=== PATIENT | male | born 1980 | race Two or more races ===

== ENCOUNTER 2021-05-30 09:24 | Emergency (ER) | payer OTHER, SELFPAY ==
--- NOTE | ~2021-05-30 | XR_ITS ---
EXAMINATION: XR LUMBOSACRAL SPINE CLINICAL INFORMATION: Back pain COMPARISON: None TECHNIQUE: Three views of the lumbosacral spine. FINDINGS: The vertebral bodies have normal height and alignment. The curvature of the lumbar spine is normal. The disc spaces are maintained. No pars interarticularis defect or vertebral compression fracture. The anterior and posterior elements are intact. No lytic or osteoblastic lesion. Sacrum and sacroiliac joints are normal. XR/XR lumbar spine 2-3V IMPRESSION: Normal lumbar spine. No fracture or malalignment.
[2021-05-30 09:44] VITALS: BP 145/96; PULSE 75; RESP 16; TEMP 36.6; O2SAT 97; BMI 26.6
--- NOTE | 2021-05-30 10:38 | ED.BACK ---
HPI - Back Pain/Injury General Chief Complaint: Back Pain/Injury Stated Complaint: back & leg pain Time Seen by Provider: 05/30/21 10:37 Source: patient Mode of arrival: ambulatory Limitations: no limitations History of Present Illness HPI Narrative: 41 years old male came in for evaluation of back pain. 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 No urinary or stool incontinence, no fever, no chills. Related Data Previous Rx's Medication Instructions Recorded miconazole nitrate 2 % topical 1 appl TOPICAL BID 10 Days #85 g 08/30/20 powder baclofen 10 mg tablet 10 mg PO BEDTIME PRN #5 tab 05/29/21 ibuprofen 600 mg tablet 600 mg PO Q8H PRN #15 tab 05/29/21 Allergies Allergy/AdvReac Type Severity Reaction Status Date / Time No Known Allergies Allergy Verified 05/29/21 08:56 Review of Systems Review of Systems: All other systems are reviewed and are negative Constitutional: Reports as per HPI and Reports no additional constitutional complaints Eyes: Reports as per HPI and Reports no additional eye complaints Reports system reviewed and no additional complaints, except as documented Cardiovascular: Reports as per HPI and Reports no additional cardiovascular complaints Respiratory: Reports as per HPI and Reports no additional respiratory complaints Gastrointestinal: Reports as per HPI and Reports no additional gastrointestinal complaints Genitourinary: Reports no additional female genitourinary complaints Musculoskeletal: Reports no additional musculoskeletal complaints Skin/Breast: Reports system reviewed and no additional complaints, except as docu Psychiatric: Reports no additional psychiatric complaints Endocrine: Reports no additional endocrine complaints Hematologic/Lymphatic: Reports no additional hematologic/lymphatic complaints Allergic/Immunologic: Reports no additional allergic/immunologic complaints Reports system reviewed and no additional complaints, except as documented and Reports Abnormal speech present [facility] Past Medical History Medical History Overweight (BMI 25.0-29.9) Tinea pedis Vitamin D deficiency Surgical History Myringotomy tube(s) status Family History Family History Father No problems noted. 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 Blood pressure normal. Heart rate normal. Respiration rate normal. Temperature normal. Oxygen saturation normal. Appearance: Alert. Oriented X3. No acute distress. Head: Normal external exam. Normocephalic. Atraumatic. No Davis signs noted. No raccoon eyes noted Eyes: PERRLA. EOMI. Conjunctiva and sclera normal. Eyelids normal. ENT: TM's Normal. Pharynx normal. Uvula midline. Moist mucous membranes. No trismus noted. No drooling noted. No muffled voice noted. Neck: Normal inspection. Neck supple. FROM. No adenopathy. Thyroid Normal. No meningeal signs. No neck mass noted. CVS: Normal heart rate and rhythm. Heart sound normal. No murmurs noted. Pulses normal throughout. Respiratory: No respiratory distress. Painless inspiration. Breath sounds normal. No wheezes/rales/rhonchi noted. Chest nontender. No accessory muscle usage noted or decreased air movement noted. Abdomen: Soft and nontender. Bowel sounds normal in all 4 quadrants. No distention noted. No organomegaly noted. No visible injury noted. Back: No CVA tenderness. Full range of motion noted. Mild no lumbar spine tenderness, no step-off, no deformity. Skin: Skin warm and dry. Normal skin color. Normal skin turgor. No rashes/lesions/lacerations noted. Extremities: No lower extremity edema. Extremities exhibit normal range of motion. Extremities nontender. Neuro: Oriented X 3. Cranial nerve exam: II-XII are grossly intact No motor deficit. No sensory deficit. Reflexes normal. Perianal sensation is intact, able to ambulate on both heels and toes. Course Course Course Narrative: Assessment and plan. 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 Patient already seen by his PCP to arrange for physical therapy that will start next week, patient was instructed to rest for the next 3 days, with no strenuous activity or heavy lifting. Using NSAIDs as an anti-inflammatory. MDM - Back Pain/Injury Imaging Data Lumbar spine: Attestation: I personally reviewed and interpreted this imaging study as follows: Radiologist's impression: No acute pathology Discharge Plan Discharge Clinical Impression: Sciatica Patient Disposition: Home, Self-Care Instructions: Sciatica (ED) Prescriptions: No Action miconazole nitrate 2 % powder 1 appl topical BID 10 Days Qty: 85 RF: 0 ibuprofen 600 mg tablet 600 mg PO Q8H PRN (Reason: pain) Qty: 15 RF: 0 baclofen 10 mg tablet 10 mg PO BEDTIME PRN (Reason: muscle spasm) Qty: 5 RF: 0 Referrals: Estevan Padilla MD [Primary Care Provider] - 2 days Stand Alone Forms: Work/School Release
== END 2021-05-30 11:24 | disposition home or self-care (01) ==
PROVIDERS: Emergency Provider Emergency Medicine; PCP Internal Medicine
DX: M54.40 Lumbago with sciatica, unspecified side (principal)
CPT/HCPCS: 72100; 99283; 99284

== ENCOUNTER 2021-06-06 09:00 | Outpatient (RCR) | payer OTHER, SELFPAY ==
--- NOTE | 2021-05-31 16:05 | MHC.PT.EP ---
[facility] [place] [facility] [place] [facility] [place] Office [address] Carloz Melendez [address] [phone] F: [phone] F: [phone] F: [phone] F: [phone] Physical Therapy Plan of Care Date of Evaluation: Date of Surgery: Diagnosis: dorsalgia Assessment: 41 y/o M referred to PT with dorsalgia. 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 He then injured his back while at work on 05/28/21when he was moving a pallet side to side to get it to fit on a [employer]. CUrrently he is having pain and difficulty with bending, don/doffing shoes, rolling over in bed, R sidelying, prolonged sitting, walking, prolonged standing, and lifting. Examination shows decreased lumbar AROM, decreased R LE strength, (+) R SLR and prone knee bend, slight SI asymmetry, muscle spasm, and impaired gait pattern. He centralized with REIL. S/s consistent with lumbar derangement. Recommend PT 2x/week for 4 weeks to address impairments, implement HEP, and optimize functional mobility. Frequency and Duration: The patient will be seen 2x/week for 4 weeks Short Term Goals: 2 weeks 1. I with hEP 2. Improve lumbar AROM to WNL 3. Pt will report decrease in pain levels by 50% (IR 8/10) Correction Goals: 4 weeks 1. I with HEP and self management of sx 2. Pt will be able to sit > 60 min with use of lumbar roll and pain < 3/10 3. Pt will be able to ambulate > 45 min with pain < 3/10 Treatment Plan: Modalities to reduce pain, spasms and effusion. Manual therapy to restore motion and function. Therapeutic exercise to improve strength and flexibility. Neuromuscular re-education for posture and balance. Therapeutic activities to return to functional activities of daily living. Electronically signed by: Rima Villela PT Please sign and return to therapist. Thank you for your referral.
--- NOTE | 2021-06-28 08:21 | MHC.PT.DC ---
[facility] [place] Office [place] Office [place] Office [address] Carloz Melendez [address] [phone] F: [phone] F: [phone] F: [phone] F: [phone] Physical Therapy Discharge Report Diagnosis: dorsalgia Date of Surgery: Date of Evaluation: 05/31/21 Date of Discharge: 06/28/21 Treatments to Date: 2 Cancellations to Date: 1 No Shows to Date: 2 Discharge Status: Visit Non-compliance Discharge Summary: D/c secondary to noncompliance with scheduling policy. Electronically signed by: Rima Villela PT Please sign and return to therapist. Thank you for your referral.
== END 2021-06-28 08:21 | disposition home or self-care (01) ==
LOC: HO.PT 09:00
PROVIDERS: PCP Internal Medicine; Visit Provider Nurse Practitioner Family
DX: M54.9 Dorsalgia, unspecified (principal)
CPT/HCPCS: 97110; 97140; 97161

== ENCOUNTER 2021-06-26 18:21 | Outpatient (REF) | payer OTHER, SELFPAY ==
--- NOTE | ~2021-06-26 | MR_ITS ---
EXAMINATION: MR LUMBAR SPINE WITHOUT CONTRAST CLINICAL INFORMATION: Pain in right leg. COMPARISON: Plain films 05/30/2021. TECHNIQUE: MRI of the lumbar spine was obtained using routine sequences without contrast. FINDINGS: VERTEBRAL BODIES AND PARASPINAL STRUCTURES: There is anatomic alignment of the vertebral bodies. There is mild loss of intervertebral disc height at L4-L5. Vertebral body heights and contours are maintained and no fractures are demonstrated. Marrow signal is homogenous. The visualized retroperitoneal and pelvic structures are unremarkable. There are mild sclerotic changes of the bilateral sacroiliac joints. CONUS MEDULLARIS AND CAUDA EQUINA: Normal, terminating at the level of L1. The lower thoracic spinal cord appears normal. The cauda equina nerve roots and filum terminale appear normal. SPINAL LEVELS: L1-L2: The facet joints appear normal bilaterally. Disc contour is normal. There is no central stenosis or foraminal narrowing. L2-L3: The facet joints appear normal bilaterally. Disc contour is normal. There is no central stenosis or foraminal narrowing. L3-L4: There is mild bilateral facet arthropathy with ligamenta flava hypertrophy and facet joint effusions. Disc contour is normal, and there is no central stenosis. The neural foramina are patent bilaterally. L4-L5: There is mild bilateral facet arthropathy with ligamenta flava hypertrophy and facet joint effusions. There is a central and right-sided disc protrusion, which narrows the right subarticular recess, with mass effect on the traversing right L5 nerve root. The neural foramina are patent. There is no central stenosis. L5-S1: There is mild bilateral facet arthropathy. There is a mild diffuse disc bulge, but there is no central stenosis and the neural foramina are patent bilaterally. MR/MR lumbar spine wo con IMPRESSION: 1. There is a central and right-sided disc protrusion which narrows the right subarticular recess, with mass effect on the traversing right L5 nerve root. There is no central stenosis. 2. Mild facet arthropathic changes and spondylosis are demonstrated at other levels as described above.
== END 2021-06-26 18:22 | disposition home or self-care (01) ==
LOC: HO.MRI 18:21
PROVIDERS: PCP Internal Medicine; Visit Provider Nurse Practitioner Acute Care
DX: M79.604 Pain in right leg (principal)
CPT/HCPCS: 72148

== ENCOUNTER → 2021-08-08 09:03 | Outpatient (BNVA) | payer OTHER, SELFPAY | PROVIDERS: PCP Internal Medicine; Visit Provider Anesthesiology | DX: M51.36 Other intervertebral disc degeneration, lumbar region (principal); M47.816 Spondylosis without myelopathy or radiculopathy, lumbar region; Z79.891 Long term (current) use of opiate analgesic | CPT/HCPCS: 99202 ==

== ENCOUNTER 2021-10-09 06:14 | Outpatient (REF) | payer OTHER, SELFPAY ==
--- NOTE | ~2021-10-09 | FL_ITS ---
EXAMINATION: XR FLUOROSCOPY WITH IMAGES CLINICAL INFORMATION: Spondylosis without myelopathy or radiculopathy. COMPARISON: None. TECHNIQUE: Fluoroscopy performed by Shaila Garibay NP. Fluoroscopy time: 0.2 minutes DAP: 1 Gy-cm2 Images: 1 FINDINGS: Images demonstrate needle placement and contrast injection adjacent to the left L4 vertebral body. FL/FL guidance in treatment room IMPRESSION: Fluoroscopy guidance for pain management procedure.
== END 2021-10-09 06:15 | disposition home or self-care (01) ==
LOC: HO.RADIR 06:14
PROVIDERS: Visit Provider Anesthesiology
DX: M47.816 Spondylosis without myelopathy or radiculopathy, lumbar region (principal); M51.36 Other intervertebral disc degeneration, lumbar region
CPT/HCPCS: 64483; J3300; Q9967

== ENCOUNTER → 2021-10-26 15:02 | Outpatient (BNVA) | payer SELFPAY | PROVIDERS: PCP Anesthesiology; Visit Provider Internal Medicine | DX: Z02.79 Encounter for issue of other medical certificate (principal) ==

== ENCOUNTER → 2021-11-07 10:35 | Outpatient (BNVA) | payer SELFPAY | PROVIDERS: PCP Internal Medicine; Visit Provider Anesthesiology | DX: Z13.89 Encounter for screening for other disorder (principal) | CPT/HCPCS: 99212 ==

== ENCOUNTER 2021-11-12 14:15 | Outpatient (REF) | payer OTHER, SELFPAY ==
--- NOTE | ~2021-11-12 | XR_ITS ---
EXAMINATION: XR CHEST CLINICAL INFORMATION: J06.9 - Acute upper respiratory infection, unspecified COMPARISON: None TECHNIQUE: 2 views of the chest were obtained. FINDINGS: Lungs are clear and there is no airspace consolidation or groundglass opacity or effusion. No hyperinflation. No coarsening of the bronchiolar markings. The heart is within normal size. The vascularity is normal. The hilar and mediastinal contours and visualized bony structures are unremarkable. XR/XR chest 2V IMPRESSION: Unremarkable examination.
== END 2021-11-12 14:16 | disposition home or self-care (01) ==
LOC: HO.XRAY 14:15
PROVIDERS: PCP Internal Medicine; Visit Provider Internal Medicine
DX: J06.9 Acute upper respiratory infection, unspecified (principal)
CPT/HCPCS: 71046

== ENCOUNTER 2021-12-14 06:28 | Outpatient (REF) | payer OTHER, SELFPAY ==
[2021-12-14 06:41] LABS: MANUAL DIFF FLAG NO
[2021-12-14 07:37] LABS: Basophils Absolute Auto 0.1 X10*3/uL (0.0-0.2); Eosinophils Absolute Auto 0.4 X10*3/uL (0.0-0.4); Eosinophils Percent Auto 6.2 % (0-4); Hematocrit 42.1 % (42.0-52.0); Hemoglobin 13.5 g/dl (14.0-18.0); Imm Gran Abs Auto 0.01 X10*3/uL (0.00-0.03); Imm Gran Pct Auto 0.2 % (0.0-0.4); Lymphocytes Absolute Auto 2.2 X10*3/uL (1.2-4.9); Lymphocytes Percent Auto 36.4 % (20-40); Mean Corpuscular HGB Conc 32.1 g/dl (31.0-36.0); Mean Corpuscular Hemoglobin 28.1 pg (27.0-33.0); Mean Corpuscular Volume 87.7 fL (80.0-98.0); Mean Platelet Volume 10.9 fL (9.4-12.4); Monocytes Absolute Auto 0.5 X10*3/uL (0.1-1.2); Monocytes Percent Auto 8.5 % (2-11); Neutrophils Absolute Auto 2.9 x10*3/uL (2.0-8.3); Neutrophils Percent Auto 47.7 % (45-73); Platelet Count 255 X10*3/uL (160-400); Red Cell Distribution Width 13.1 % (11.0-16.0); White Blood Count 6.1 X10*3/uL (4.8-10.8)
[2021-12-14 08:00] LABS: Alanine Aminotransferase 21 U/L (0-40); Albumin Level 4.2 g/dL (3.5-5.0); Alkaline Phosphatase 86 U/L (39-117); Anion Gap 11 (12-20); Aspartate Amino Transferase 17 U/L (5-37); Bilirubin Total 0.4 mg/dL (0.0-1.0); Blood Urea Nitrogen 16 mg/dL (9-16); Carbon Dioxide 29 mmol/L (22-29); Chloride 102 mmol/L (96-108); Cholesterol 190 mg/dL; Estimated Glomerular Filt Rate > 60; Glucose Fasting 90 mg/dL (60-99); HDL Cholesterol 47 mg/dL; LDL Cholesterol Calculated 132 mg/dl; Potassium 3.9 mmol/L (3.3-5.1); Sodium 138 mmol/L (135-145); Total Protein 7.4 g/dL (6.5-8.0); Triglycerides 56 mg/dL
[2021-12-14 08:23] LABS: TSH reflex Free T4 0.58 uIU/mL (0.32-4.0); Vitamin D 25-OH Total 14.7 ng/mL (>30)
[2021-12-14 09:06] LABS: Urine Cytology See Pathology rpt
[2021-12-14 09:12] LABS: Appearance Urine CLEAR; Color Urine YELLOW; Glucose Urine UA NEG (NEG); Leukocyte Esterase Urine NEG (NEG); Nitrite Urine NEG (NEG); Specific Gravity - Urine 1.025 (1.005-1.025); UACC Culture Trigger NO; Urine Blood 3+ (NEG); Urine Ketones NEG (NEG); Urine Protein NEG (NEG-TRACE)
[2021-12-14 09:36] LABS: WBC Urine 0-2 /HPF (0-4)
== END 2021-12-14 06:29 | disposition home or self-care (01) ==
LOC: HO.LAB 06:28
PROVIDERS: PCP Internal Medicine; Visit Provider Internal Medicine
DX: Z00.00 Encounter for general adult medical examination without abnormal findings (principal); Z12.5 Encounter for screening for malignant neoplasm of prostate; E55.9 Vitamin D deficiency, unspecified; R31.1 Benign essential microscopic hematuria
CPT/HCPCS: 36415; 80053; 80061; 81001; 82306; 84153; 84443; 85025; 88112

== ENCOUNTER 2024-07-19 17:26 | Outpatient (AMB) | payer OTHER, SELFPAY ==
--- OUTSIDE RECORDS SUMMARY | 2024-07-19 17:29 | XMS_ITS ---
Author Organization [facility], Address [address] [place] [address] Care Team Providers Care Photonics Engineering Technician Name Role Phone Ria Morrow [facility] [phone] ALLERGIES, ADVERSE REACTIONS, ALERTS Substance Code Code System Type Reaction Severity Status Start Date End Date No known drug allergies RxNorm Other substance allergy () 1 No known allergies RxNorm Other substance allergy () 1 No known non-drug allergies RxNorm Other substance saman rgy () 1 MEDICATIONS * None PROBLEMS Problem Name Code Code System Start Date End Date Stat Acute upper respiratory infe ction, unspecified 42362336 [facility] 06/25/2023 Active ENCOUNTERS Encounter Diagnosis Code Code System Date Stat Acute upper respiratory infection, unspecified 79317494 [facility] 06/25/2023 Active IMMUNIZATIONS * None VITAL SIGNS Code Code System Vitals Name Date Value and Un its 8462-4 [facility] Blood Pressure-Diastolic 06/25/2023 94 mmHg 8480-6 [facility] Blood Pressure-Systolic 06/25/2023 1 41 mmHg 8867-4 [facility] Heart Rate 06/25/2023 101 /min 9279-1 [facility] Respiratory Rate 06/25/2023 18 /min 8310-5 [facility] Body Temperature 06/25/2023 97.2 F 66400-5 [facility] Oxygen Saturation 06/25/2023 97 % SOCIAL HISTORY * None PROCEDURES * None RESULTS Test Code Code System Description Result Value Date Ref erence Range Loinc SARS-CoV-2 Not Detected 06/25/2023 Not De tected Loinc Flu A Not Detected 06/25/2023 Not Det ected Loinc Flu B Not Detected 06/25/2023 Not Det ected MEDICAL EQUIPMENT * Patient has no history of implantable devices ASSESSMENT * None TREATMENT PLAN Type Description Date APPOINTMENT If not feeling manas r in 3 day(s), please see your primary care physician. If you do not have a primary care physician, please return to this clinic. 06/25/2023 Labs Tests Test Name Code Code System Date Sandra/Cepheid SARS-CoV-2 & Fl u A/B Multiplex Assay, Amplified Probe Molecular RT-PCR / NAAT 68647 CPT 06/25/2023 GOALS * None HEALTH CONCERNS * No Health Concerns FUNCTIONAL AND COGNITIVE STATUS * None CONSULTATION NOTES * None DISCHARGE SUMMARY NOTES * None HISTORY AND PHYSICAL NOTES * Reason for visit - Illness IMAGING NOTES * None LABORATORY REPORT NARRATIVE NOTES * None PATHOLOGY REPORT NARRATIVE NOTES * None PROGRESS NOTES * None
[2024-07-19 17:30] VITALS: BP 138/84; BMI 30.3
--- NOTE | 2024-07-19 17:30 | MHC.PC.OV ---
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 Required: No Accompanied by: Self / Same As Patient Allergies buprenorphine Adverse Reaction (Intermediate, Verified 07/19/24 17:36) Dizziness naloxone Adverse Reaction (Intermediate, Verified 07/19/24 17:36) Dizziness Medication List - Last Reconciled 07/19/24 by Estevan Padilla MD ibuprofen 800 mg PO TID PRN Tobacco use date assessed: 07/19/24 Dental Screening Dental Screen Date: 07/19/24 Did you have a dental visit in the last 12 months?: Yes Did you have a dental problem in the last 6 months where you did not have access to dental care?: No Was dental information given to patient?: Patient has dentist HPI annual exam HPI Details Patient comes in today for his annual physical examination - he has not been back in over 2 years (was last seen in May 2022) due to insurance changes Relates that he had to switch his PCP over to the doctors at [facility] for a while until recently States that he currently feels okay He denies any headaches or dizziness Denies any chest pains, no SOB No nausea/vomiting, no abdominal pain but states that his stomach has been feeling bloated frequently for over a year now No change in bowel habits noted He denies any acute urinary symptoms Relates that he was started on an unrecalled blood pressure medication by his previous doctor at [facility] but patient stopped taking about 6 months ago as he recalls not feeling too good while he was on the medication even after he cut it back to a half dose on his own Notes that his blood pressure has been doing okay even though he has not taken his blood pressure Rx in a few months now [facility] Medical History (Updated 07/20/24 @ 01:34 by Estevan Padilla MD) Obesity (BMI 30-39.9) Benign microscopic hematuria Pure hypercholesterolemia Spondylosis of lumbar spine Disc degeneration, lumbar Vitamin D deficiency Overweight (BMI 25.0-29.9) Tinea pedis Surgical History Myringotomy tube(s) status Family History Father No problems noted. 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 1. Little interest or pleasure in doing things: not at all 2. Feeling down, depressed, or hopeless: not at all 3. Trouble falling or staying asleep, or sleeping too much: several days 4. Feeling tired or having little energy: several days 5. Poor appetite or overeating: not at all 6. Feeling bad about yourself - or that you are a failure or have let yourself or your family down: not at all 7. Trouble concentrating on things, such as reading the newspaper or watching television: not at all 8. Moving or speaking so slowly that other people could have noticed. Or the opposite - being so fidgety or restless that you have been moving around a lot more than usual: not at all 9. Thoughts that you would be better off or of hurting yourself in some way: not at all Total score: 2 Depression Screening Interpretation: Negative Depression Screening Done: Yes 79121 - PHQ-9 Billing: Yes Source: Developed by Drs. Naman Beckett, Yadira Thomas, Nima Alcaraz and colleagues, with an educational mecca from [employer]. Thrive Questionnaire Date Thrive assessed: 07/19/24 I am a: Patient What is your living situation today?: I have a steady place to live Within the past 12 months, did the food you bought not last and you didn't have the money to get more?: Often true Within the past 12 months, did you worry whether your food would run out before you got money to buy more?: Often true Do you have trouble paying for medicines?: No Do you have trouble getting transportation to medical appointments?: No Do you have trouble paying your heating and electricity bill?: No Do you have trouble taking care of your child, family member or friend?: Yes Do you have trouble with day-to-day activities such as bathing, preparing meals, shopping, managing finances, etc.?: No Are you currently unemployed and looking for a job?: No Are you interested in more education?: No Please select the resources that you would like help with: Childcare Currently or been in a relationship where the following occur: No concerns reported THRIVE Score: 2 AUDIT C Alcohol Use Questionnaire (AUDIT-C) 1. How often do you have a drink containing alcohol?: Monthly or less 2. How many drinks containing alcohol do you have on a typical day when you are drinking?: 1 or 2 3. How often do you have six or more drinks on one occasion?: Never Total Score: 1 Score Reviewed/Action Taken: Yes SHANIQUE-7 AMB Questionnaire SHANIQUE-7 Date SHANIQUE - 7 assessed: 12/12/21 Feeling nervous, anxious, or on edge: 0 = Not at all Not being able to stop or control worryin = Several days Worrying too much about different things: 1 = Several days Trouble relaxin = Several days Being so restless that it is hard to sit still: 0 = Not at all Becoming easily annoyed or irritable: 0 = Not at all Feeling afraid as if something awful might happen: 0 = Not at all Total SHANIQUE-7 score (0-4 normal; 5-9 mild; 10-14 moderate; 15-21 severe): 3 Source: Developed by Drs. Naman Beckett, Yadira Thomas, Nima Alcaraz and colleagues, with an educational mecca from [facility]. Review of Systems Const Denies chills, Denies fatigue, Denies fever(s), Denies headache(s), Denies malaise and Denies weakness Eyes Denies blurry vision, Denies change in vision, Denies irritation and Denies itchy eyes ENT Denies dysphagia, Denies dizziness, Denies otalgia, Denies headache(s), Denies nasal congestion, Denies neck pain, Denies odynophagia and Denies sore throat Card Denies chest pain, Denies rapid heart rate, Denies irregular heart rhythm, Denies palpitations and Denies dyspnea Resp Denies chest congestion, Denies cough, Denies dyspnea and Denies wheezing GI Denies abdominal pain, Reports bloating, Denies constipation, Denies dysphagia, Reports heartburn (at times), Denies diarrhea, Denies nausea, Denies odynophagia and Denies vomiting Denies hematuria, Denies difficulty urinating, Denies dysuria, Denies urinary frequency and Denies urinary urgency Musc Reports back pain (on and off, over the lower back), Denies arthralgias, Denies joint swelling, Denies muscle weakness and Denies neck pain Skin/Breast Denies change in pigmentation, Denies lesions, Denies rash and Denies unusual bruising Neuro Denies dizziness, Denies headache(s), Denies paresthesias and Denies weakness Endo Denies fatigue and Denies palpitations Aller/Immun Denies itchy eyes and Denies wheezing Physical exam (Primary Care) Vital Signs: Last Vital Signs BP 138/84 07/19/24 17:30 BMI result Body Mass Index 30.3 Tobacco/Smoking Status: Tobacco use Status Tobacco use date assessed 07/19/24 07/19/24 17:33 Patient Tobacco Use Status Former Tobacco user 07/19/24 17:33 e-Cigarette/Vaping Use Never Used 07/19/24 17:33 PHQ-9: PHQ-9 Score PHQ-9: Total score 2 07/19/24 17:47 Depression Screening Interpretation: Negative Thrive Assessment: Date of Thrive Assessment Date Thrive assessed 07/19/24 07/19/24 17:47 Currently or been in a relationship where the following occur: No concerns reported Const General: no acute distress, alert and awake Orientation/consciousness: patient oriented x3 HENMT Head: Yes normocephalic and Yes atraumatic Ears: external ears normal, TM's normal bilaterally and EAC's normal General nose exam: No nasal discharge present Face and sinus: Yes normal facial exam and Yes sinuses nontender Teeth and gingiva: dentition normal Throat: Yes posterior oropharynx normal and Yes tonsils normal (no TP congestion) Eyes Eyelids: Yes eyelids normal Conjunctivae: conjunctivae normal Pupils: Equal, round and reactive pupils present EOM: EOMs intact bilaterally Neck Neck: Yes no lymphadenopathy and Yes supple Thyroid: Thyroid normal Resp Auscultation: clear to auscultation bilaterally, no rales and no wheezes Cardio Rate: regular rate Rhythm: regular rhythm Heart sounds: no murmurs GI Palpation (GI): Soft to palpation, nontender and No hepatosplenomegaly present Auscultation: normal bowel sounds General: Yes no CVA tenderness Back/Spine/Pelvis Back: no CVA tenderness Thoracic/Lumbar Spine: lumbar spinal tenderness (mild) Skin Lesions: no lesions Rashes: no rashes Neuro General: patient oriented x3, moves all extremities, no focal motor deficits and CN's II-XI intact bilaterally Cranial nerves: Yes Equal, round and reactive pupils present Cognition (Neuro): normal cognition Gait exam (Neuro): Normal gait present Extrem General: Yes no clubbing, cyanosis or edema Coding Level of Care Code New Pt Prev Care 40-64y(43961) Diagnoses Annual physical exam Z00.00 Abdominal bloating R14.0 Pure hypercholesterolemia E78.00 Vitamin D deficiency E55.9 Degeneration of intervertebral disc of lumbar region with discogenic back pain M51.360 Disc-related pain type: discogenic back pain only Obesity (BMI 30-39.9) E66.9 Additional Codes PHQ-9 - 06934 - PHQ-9 Billing: Yes ([id number]) Assessment & Plan Assessment & Plan (1) Annual physical exam: Code(s): Z00.00 - Encounter for general adult medical examination without abnormal findings Category: Medical Plan: Check labs (2) Abdominal bloating: Code(s): R14.0 - Abdominal distension (gaseous) Category: Medical Plan: Discussed with patient that his frequent abdominal bloating is likely due to acid reflux Constipation is also a possibility but he relates that his bowel movements are perfectly normal Will send him for upper GI series for further evaluation (3) Pure hypercholesterolemia: Code(s): E78.00 - Pure hypercholesterolemia, unspecified Category: Medical Plan: Reinforced low cholesterol diet His LDL cholesterol was slightly elevated at 132 mg/dl when it was last checked in 2021 Will recheck his labs and fasting lipids NICK (4) Vitamin D deficiency: Code(s): E55.9 - Vitamin D deficiency, unspecified Category: Medical Plan: Patient's Vitamin D level was also low when last checked here in 2021 Will recheck his Vitamin D level for follow up (5) Lumbar degenerative disc disease: Code(s): M51.36 - Other intervertebral disc degeneration, lumbar region Category: Medical Qualifiers: Disc-related pain type: discogenic back pain only Qualified Code(s): M51.360 - Other intervertebral disc degeneration, lumbar region with discogenic back pain only Plan: Lumbar spine MRI done back in 2020 revealed (+) central and right-sided disc protrusion which narrows the right subarticular recess, with mass effect on the traversing right L5 nerve root. There is no central stenosis. There is also (+) mild facet arthropathic changes and spondylosis at L3-L4, L4-L5 and L5-S1 Reinforced activity and weight-lifting restrictions to avoid aggravating his low back pain Patient states that his low back pain has improved with regular back exercises (6) Obesity (BMI 30-39.9): Code(s): E66.9 - Obesity, unspecified Category: Medical Plan: Reinforced diet/exercise as tolerated/lose weight Plan Follow up in 3 months Orders: Orders Complete Blood Count Auto Diff 07/19/24 D64.9 - Anemia, unspecified, Z00.00 - Encounter for general adult medical examination without abnormal findings Comprehensive [place]. Panel Fast 07/19/24 E78.00 - Pure hypercholesterolemia, unspecified, Z00.00 - Encounter for general adult medical examination without abnormal findings Lipid Panel 07/19/24 E78.00 - Pure hypercholesterolemia, unspecified, Z00.00 - Encounter for general adult medical examination without abnormal findings TSH reflex Free T4 07/19/24 E78.00 - Pure hypercholesterolemia, unspecified, Z00.00 - Encounter for general adult medical examination without abnormal findings UA CC w/rflx Micro + Cult 07/19/24 R30.0 - Dysuria, Z00.00 - Encounter for general adult medical examination without abnormal findings Vitamin D 25-OH Total 07/19/24 E55.9 - Vitamin D deficiency, unspecified, Z00.00 - Encounter for general adult medical examination without abnormal findings Prostate Specific Antigen Scr 07/19/24 Z00.00 - Encounter for general adult medical examination without abnormal findings FL upper GI series 07/19/24 K21.9 - Gastro-esophageal reflux disease without esophagitis, R14.0 - Abdominal distension (gaseous)
== END 2024-07-19 17:55 | disposition home or self-care (01) ==
PROVIDERS: PCP Internal Medicine; Visit Provider Internal Medicine
DX: Z00.00 Encounter for general adult medical examination without abnormal findings (principal); R14.0 Abdominal distension (gaseous); E66.9 Obesity, unspecified; Z68.30 Body mass index [BMI] 30.0-30.9, adult; E78.00 Pure hypercholesterolemia, unspecified; E55.9 Vitamin D deficiency, unspecified; M51.360 Other intervertebral disc degeneration, lumbar region with discogenic back pain only

== ENCOUNTER → 2024-07-19 17:26 | Outpatient (BNVA) | payer OTHER, SELFPAY | PROVIDERS: PCP Internal Medicine; Visit Provider Internal Medicine | DX: Z00.00 Encounter for general adult medical examination without abnormal findings (principal); R14.0 Abdominal distension (gaseous); E78.00 Pure hypercholesterolemia, unspecified; E55.9 Vitamin D deficiency, unspecified; M51.360 Other intervertebral disc degeneration, lumbar region with discogenic back pain only; E66.9 Obesity, unspecified | CPT/HCPCS: 96127; 99386 ==

== ENCOUNTER 2024-10-20 09:54 | Outpatient (REF) | payer OTHER, SELFPAY ==
--- NOTE | ~2024-10-20 | FL_ITS ---
EXAMINATION: XR FLUOROSCOPY UPPER GI SERIES CLINICAL INFORMATION: 44-year-old male complaining of frequent burping, with no other symptomatology. COMPARISON: None TECHNIQUE: Fluoroscopic air contrast upper GI examination was performed utilizing standard techniques with thin and thick barium and effervescent granules. Numerous spot images were obtained. Several fluoroscopic image hold cine sequences were also obtained. FINDINGS: UPPER GI SERIES: Lateral cine images of the oropharynx and hypopharynx demonstrate normal swallow mechanism with normal epiglottic inversion and soft palate elevation. No laryngeal penetration, glottic or subglottic aspiration identified. No nasopharyngeal reflux present. Hypopharyngeal structures appear normal without evidence of mass or diverticulum. There was no significant cricopharyngeal achalasia. Dual and single contrast images of the esophagus demonstrate normal caliber, contour, and mucosal pattern. No evidence of stricture, mass, or ulcerations identified. Esophageal peristalsis was mildly disordered. No definite hiatus hernia identified. Mild episodic gastroesophageal reflux was observed. Dual contrast and single contrast images of the stomach demonstrated normal contour without evidence of mass, or ulceration. Normal rugal fold pattern. Diffuse prominence of the areae gastricae in keeping with gastritis. Contrast freely passed into the gastric antrum and duodenal bulb without delay. Single and air-contrast images of the duodenal bulb demonstrate no abnormality. The duodenal sweep has a normal appearance, course, and mucosal fold appearance. FLUOROSCOPY TIME: 3 minutes, 13 seconds. Number of Spot Images:10 Number of cines obtained: 10 DOSE AREA PRODUCT: [id number] uGy-m2 (microgray-meter squared) FL/FL upper GI w air IMPRESSION: 1. Etiology of frequent burping is not clear on this examination. 2. Mildly disordered esophageal motility. Normal-appearing esophageal mucosa. 3. Diffuse prominence of the areae gastricae in keeping with gastritis. Stomach is otherwise normal. 4. Mild episodic gastroesophageal reflux observed. No hiatus hernia. Electronically signed by: Sammy Preston MD 10/20/2024 11:34 AM EDT
[2024-10-20 10:23] LABS: MANUAL DIFF FLAG NO
[2024-10-20 10:52] LABS: Basophils Absolute Auto 0.1 X10*3/uL (0.0-0.2); Basophils Percent Auto 0.9 % (0-2); Eosinophils Absolute Auto 0.3 X10*3/uL (0.0-0.4); Eosinophils Percent Auto 4.2 % (0-4); Hematocrit 43.8 % (42.0-52.0); Hemoglobin 14.4 g/dl (14.0-18.0); Imm Gran Abs Auto 0.01 X10*3/uL (0.00-0.03); Imm Gran Pct Auto 0.1 % (0.0-0.4); Lymphocytes Absolute Auto 2.6 X10*3/uL (1.2-4.9); Mean Corpuscular HGB Conc 32.9 g/dl (31.0-36.0); Mean Corpuscular Hemoglobin 28.6 pg (27.0-33.0); Mean Corpuscular Volume 86.9 fL (80.0-98.0); Mean Platelet Volume 10.4 fL (9.4-12.4); Monocytes Absolute Auto 0.5 X10*3/uL (0.1-1.2); Monocytes Percent Auto 6.8 % (2-11); Neutrophils Absolute Auto 3.5 x10*3/uL (2.0-8.3); Platelet Count 238 X10*3/uL (160-400); Red Blood Count 5.04 X10*6/uL (4.60-5.80); Red Cell Distribution Width 13.2 % (11.0-16.0); White Blood Count 6.9 X10*3/uL (4.8-10.8)
--- OUTSIDE RECORDS SUMMARY | 2024-10-20 11:17 | XMS_ITS | Clinical Summary ---
Author Organization [facility] Address [address] [place] [address] Phone Care Team Providers Care Die Maker Name Role Phone Physician, No Pcp Primary Care Provider Unavaila ble Allergies No known active allergies Medications fluticasone propionate (FLONASE) 50 mcg/actuation nasal spray Administer 2 sprays into each nostril 1 (one) time each day. 32 mL 2 4 Active silver sulfADIAZINE (SILVADENE, SSD) 1 % cream Applied to the perianal skin as a thin film twice daily 3 Active cyclobenzaprine (FLEXERIL) 5 mg tablet Take 1 tablet (5 mg total) by mouth at bedtime as needed. 3 Active diclofenac (VOLTAREN) 50 mg EC tablet Take 1 Tablet by mouth 2 times daily as needed for Pain. Take with food. 3 Active acetaminophen (TYLENOL) 500 mg tablet Take 2 tablets (1,000 mg total) by mouth every 8 (eight) hours if needed. 3 Active simethicone (Mylanta Gas) 125 mg chewable tablet Chew 1 tablet (126 mg total) every 6 (six) hours if needed for flatulence. 60 tablet 11 5 Active famotidine (Pepcid) 20 mg tablet Take 1 tablet (20 mg total) by mouth 2 (two) times a day. 60 each 11 5 08/05/19 26 Active Active Problems Problem Noted Date Diagnosed Date Microscopic hematuria 04/23/2023 Genital herpes 04/22/2023 Low back pain 03/28/2023 Overview (07/23/2024): Last Assessment & Plan: Mr. Alexandre describes right sided low back pain without radiation down the leg. It started 3 weeks ago and was much worse at that time. He had a similar episode last year but also involving right leg pain. An epidural steroid injection provided great relief until the pain in the back came back 3 weeks ago. An MRI of the lumbar spine shows desiccation of the L4-5 disc with a medium sized right paramedian disc herniation. He is taking meloxicam and would like to start some physical therapy. I will provide a prescription for physical therapy for him. He is welcome to follow-up with us after the therapy if things or not improving. Encounters Date Type Department Care Team Description 08/05/2024 10:40 AM EST Office Visit Gastroenterology - [facility] [address] [facility] [address] [facility] [address] [place] [address] Shelton Osullivan PA Bloating (Primary Dx); Gassiness; Burping; Dyspepsia from Last 3 Months Immunizations Name Administration Dates Next Due Influenza Quadrivalent, 0.5m l, preservative free (Fluarix; FluLaval; Fluzone) ages 6mo and older (Afluria) 3yo and older 05/29/2021,06/11/2019 Influenza trivalent, 0.5mL, preservative free (Fluarix; FluLaval; Fluzone) ages 6mo and older (Afluria) 3 years and older 05/21/2024 Surgical History Surgery Date Site/Laterality Comments CIRCUMCISION, PRIMARY PROCEDURE: HISTORICAL CIRCUMCISION; COMMENT: age 28 OTHER SURGICAL HISTORY PROCEDURE: DESTRUCTION OF EXTERNAL HEMORRHOIDS; COMMENT: -1999 done in [facility] Medical History Medical History Date Comments Low back pain DX:Low back pain Genital herpes DX:Genital herpe s Microscopic hematuria DX:Microsc opic hematuria Family History Relation Name Status Comments Father Mother Social History Tobacco Use Types Packs/Day Years Used Date Smoking Tobacco: Some Days Smokeless Tobacco: Never Alcohol Use Standard Drinks/Week Comments Yes 0 (1 standard drink = 0.6 oz pur e alcohol) Sex and Gender Information Value Date Recorded Sex Assigned at Not on file Legal Sex Male 5:26 PM EST Gender Identity Not on file Sexual Orientation Not on file Obstetrics History Last Filed Vital Signs Vital Sign Reading Time Taken Comments Blood Pressure 130/88 08/05/2024 11:19 AM EST Pulse 82 08/05/2024 11:19 AM EST Temperature 36.6 ??C (97.8 ??F) 06/18/2024 2:07 PM ES T Respiratory Rate 18 06/18/2024 2:07 PM EST Oxygen Saturation 100% 06/18/2024 2:07 PM EST Inhaled Oxygen Concentration - - Weight 80.3 kg (177 lb) 08/05/2024 11:19 AM EST Height 167.6 cm (5' 6 ) 08/05/2024 11:19 AM EST Body Mass Index 28.57 08/05/2024 11:19 AM EST Plan of Treatment Health Maintenance Due Date Last Done Comments DTaP,Tdap,and Td Vaccines (1 - Tdap) 1999 Hepatitis B Vaccines (1 of 3 - 19+ 3-dose series) 1999 Pneumococcal Vaccine: Pediatrics (0 to 5 Years) and At-Risk Patients (6 to 64 Years) (1 of 2 - PCV) 1999 Depression Screening 06/22/2022 HIV Screening 06/22/2022 Hepatitis C Screening 06/22/2022 Social Influencers of Health Screening 06/22/2022 Hypertension/CHF/CAD Annual BMP Blood Test 04/22/2024 04/22/2023 Cholesterol Screening (Lipid Panel) 04/22/2028 04/22/2023 COVID-19 Vaccine Completed 05/21/2024, 06/05/2021 Influenza Vaccine Completed 05/21/2024, 05/29/2021, 06/11/2019 HIB Vaccines Aged Out No longer eligi ble based on patient's age to complete this topic HPV Vaccines Aged Out No longer eligi ble based on patient's age to complete this topic Hepatitis A Vaccines Aged Out No long er eligible based on patient's age to complete this topic IPV Vaccines Aged Out No longer eligi ble based on patient's age to complete this topic MMR Vaccines Aged Out No longer eligi ble based on patient's age to complete this topic Meningococcal ACWY Vaccine Aged Out N o longer eligible based on patient's age to complete this topic Meningococcal B Vacine Aged Out No lo nger eligible based on patient's age to complete this topic RSV Immunization Patients Under 20 months Aged Out No longer eligible b ased on patient's age to complete this topic Varicella Vaccines Aged Out No longer eligible based on patient's age to complete this topic Procedures Procedure Name Priority Date/Time Associated Diagnosis Comments ANNUAL BMP BLOOD TEST Routine 04/22/2023 LIPID PANEL Routine 04/22/2023 from Last 3 Months or Most Recently Relevant to Health Maintenance Results * Annual BMP Blood Test (04/22/2023) Annual BMP Blood Test abstracted Historical Provider HEALTH MAINTENANCE Final Result * (ABNORMAL) Lipid panel (04/22/2023) LDL/HDL Ratio 4 0 - 4 Triglycerides 138 0 - 150 mg/dL Cholesterol 186 0 - 200 mg/dL HDL 46 >=40 mg/dL LDL Cholesterol 113(A) 0 - 100 mg/dL Blood Venous blood specimen / Unknown Historical Provider LAB BLOOD ORDERABLES Dede l Result from Last 3 Months or Most Recently Relevant to Health Maintenance Insurance [facility] [employer] Care Teams Die Maker Relationship Specialty Start Date End Date Physician, No Pcp PCP - General 08/05/24
[2024-10-20 11:26] LABS: Appearance Urine Clear; Color Urine Yellow; Glucose Urine UA Negative (Negative); Leukocyte Esterase Urine Negative (Negative); Nitrite Urine Negative (Negative); PH 6.5 (5.0-9.0); UMIC TRIGGER UACC YES; Urine Blood Moderate (2+) (Negative); Urine Ketones Negative (Negative); Urine Protein Negative (Neg-Trace)
[2024-10-20 11:32] LABS: Bacteria Urine None Seen (None Seen); Hyaline Casts Urine 0-2 /LPF (0-2); Squamous Epithelial Cell Urine 0-2 /HPF (0-2); WBC Urine 0-5 /HPF (0-5)
[2024-10-20 11:51] LABS: Alanine Aminotransferase 25 U/L (0-40); Albumin Level 4.4 g/dL (3.5-5.0); Alkaline Phosphatase 86 U/L (39-117); Anion Gap 8 (12-20); Aspartate Amino Transferase 23 U/L (5-37); Bilirubin Total 0.5 mg/dL (0.0-1.0); Blood Urea Nitrogen 18 mg/dL (9-16); Calcium 9.9 mg/dL (8.4-10.2); Carbon Dioxide 29 mmol/L (22-29); Chloride 108 mmol/L (96-108); Cholesterol 211 mg/dL (<200); Estimated Glomerular Filt Rate > 60; Glucose Fasting 86 mg/dL (60-99); HDL Cholesterol 47 mg/dL (>40); LDL Cholesterol Calculated 148 mg/dL (<100); Potassium 4.2 mmol/L (3.3-5.1); Sodium 141 mmol/L (135-145); Total Protein 7.8 g/dL (6.5-8.0); Triglycerides 82 mg/dL (<150)
[2024-10-20 12:10] LABS: Prostate Specific Antigen Scr 1.76 ng/mL (<0.05-4.0)
[2024-10-20 12:16] LABS: TSH reflex Free T4 0.55 uIU/mL (0.32-4.0); Vitamin D 25-OH Total 19.1 ng/mL (>30)
== END 2024-10-20 09:55 | disposition home or self-care (01) ==
LOC: HO.XRAY 09:54
PROVIDERS: PCP Internal Medicine; Visit Provider Internal Medicine
DX: Z00.00 Encounter for general adult medical examination without abnormal findings (principal); E78.00 Pure hypercholesterolemia, unspecified; E55.9 Vitamin D deficiency, unspecified; D64.9 Anemia, unspecified; K21.9 Gastro-esophageal reflux disease without esophagitis; K22.4 Dyskinesia of esophagus
CPT/HCPCS: 36415; 74246; 80053; 80061; 81001; 81003; 82306; 84153; 84443; 85025

== ENCOUNTER → 2024-10-20 10:27 | Outpatient (BNV) | payer OTHER, SELFPAY | PROVIDERS: PCP Internal Medicine; Visit Provider Radiology Diagnostic Radiology | DX: R14.0 Abdominal distension (gaseous) (principal) | CPT/HCPCS: 74246 ==

== ENCOUNTER 2024-10-27 10:43 | Outpatient (AMB) | payer OTHER, SELFPAY ==
--- NOTE | 2024-10-27 10:46 | MHC.PC.OV ---
Vital Signs 10/27/24 10:47 Height 5 ft 5 in Weight 179 lb 8 oz BMI 29.9 BP 110/80 Blood Pressure Location Lt brachial Position Sitting Pulse 68 Pulse Source Pulse Oximeter Pulse Oximetry (%) 99 Oxygen Delivery Method Room Air Intake Visit Reasons: 3 month f/u Jumpbasting Armhole Baster Required: No Accompanied by: Self / Same As Patient Allergies buprenorphine Adverse Reaction (Intermediate, Verified 10/27/24 11:30) Dizziness naloxone Adverse Reaction (Intermediate, Verified 10/27/24 11:30) Dizziness Medication List - Last Reconciled 10/27/24 by Estevan Padilla MD ibuprofen 800 mg PO TID PRN Tobacco use date assessed: 10/27/24 Dental Screening Dental Screen Date: 10/27/24 Did you have a dental visit in the last 12 months?: Yes Did you have a dental problem in the last 6 months where you did not have access to dental care?: No Was dental information given to patient?: Patient has dentist HPI 3 month f/u HPI Details Patient comes in today for his follow up visit States that he feels okay Notes that his stomach still feels bloated and uncomfortable at times but states that his symptoms have improved slightly from before He denies any nausea/vomiting or abdominal pain and would like to know how his upper GI series done last week came out He denies any headaches or dizziness Denies any chest pains, no SOB No change in bowel habits noted He had his follow up labs done last week - to discuss his results [facility] Medical History (Updated 10/27/24 @ 12:22 by Estevan Padilla MD) Gastritis Benign microscopic hematuria Pure hypercholesterolemia Spondylosis of lumbar spine Disc degeneration, lumbar Vitamin D deficiency Overweight (BMI 25.0-29.9) Tinea pedis Surgical History Myringotomy tube(s) status Family History Father No problems noted. 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 1. Little interest or pleasure in doing things: not at all 2. Feeling down, depressed, or hopeless: not at all 3. Trouble falling or staying asleep, or sleeping too much: several days 4. Feeling tired or having little energy: several days 5. Poor appetite or overeating: not at all 6. Feeling bad about yourself - or that you are a failure or have let yourself or your family down: not at all 7. Trouble concentrating on things, such as reading the newspaper or watching television: not at all 8. Moving or speaking so slowly that other people could have noticed. Or the opposite - being so fidgety or restless that you have been moving around a lot more than usual: not at all 9. Thoughts that you would be better off or of hurting yourself in some way: not at all Total score: 2 Depression Screening Interpretation: Negative Depression Screening Done: Yes 71217 - PHQ-9 Billing: Yes Source: Developed by Drs. Naman Beckett, Yadira Thomas, Nima Alcaraz and colleagues, with an educational mecca from [employer]. Thrive Questionnaire Date Thrive assessed: 10/27/24 I am a: Patient What is your living situation today?: I have a steady place to live Within the past 12 months, did the food you bought not last and you didn't have the money to get more?: Often true Within the past 12 months, did you worry whether your food would run out before you got money to buy more?: Often true Do you have trouble paying for medicines?: No Do you have trouble getting transportation to medical appointments?: No Do you have trouble paying your heating and electricity bill?: No Do you have trouble taking care of your child, family member or friend?: Yes Do you have trouble with day-to-day activities such as bathing, preparing meals, shopping, managing finances, etc.?: No Are you currently unemployed and looking for a job?: No Are you interested in more education?: No Please select the resources that you would like help with: Childcare Currently or been in a relationship where the following occur: No concerns reported THRIVE Score: 2 AUDIT C Alcohol Use Questionnaire (AUDIT-C) 1. How often do you have a drink containing alcohol?: Monthly or less 2. How many drinks containing alcohol do you have on a typical day when you are drinking?: 1 or 2 3. How often do you have six or more drinks on one occasion?: Never Total Score: 1 Score Reviewed/Action Taken: Yes SHANIQUE-7 AMB Questionnaire SHANIQUE-7 Date SHANIQUE - 7 assessed: 10/27/24 Feeling nervous, anxious, or on edge: 0 = Not at all Not being able to stop or control worryin = Several days Worrying too much about different things: 1 = Several days Trouble relaxin = Several days Being so restless that it is hard to sit still: 0 = Not at all Becoming easily annoyed or irritable: 0 = Not at all Feeling afraid as if something awful might happen: 0 = Not at all Total SHANIQUE-7 score (0-4 normal; 5-9 mild; 10-14 moderate; 15-21 severe): 3 Source: Developed by Drs. Naman Beckett, Yadira Thomas, Nima Alcaraz and colleagues, with an educational mecca from [employer]. Review of Systems Const Denies chills, Denies fatigue, Denies fever(s) and Denies headache(s) ENT Denies dysphagia, Denies dizziness, Denies otalgia, Denies headache(s), Denies neck pain, Denies odynophagia and Denies sore throat Card Denies chest pain, Denies irregular heart rhythm, Denies palpitations and Denies dyspnea Resp Denies chest congestion, Denies cough and Denies dyspnea GI Denies abdominal pain, Reports bloating (at times but stomach feels better than previous), Denies constipation, Denies dysphagia, Denies heartburn, Denies diarrhea, Denies nausea, Denies odynophagia and Denies vomiting Denies difficulty urinating, Denies dysuria and Denies urinary frequency Musc Reports back pain (on and off, over the lower back), Denies arthralgias and Denies neck pain Skin/Breast Denies rash Neuro Denies dizziness, Denies headache(s) and Denies paresthesias Endo Denies fatigue and Denies palpitations Physical exam (Primary Care) Vital Signs: Last Vital Signs Pulse 68 10/27/24 10:47 BP 110/80 10/27/24 10:47 Pulse Ox 99 10/27/24 10:47 Oxygen Delivery Method Room Air 10/27/24 10:47 BMI result Body Mass Index 29.9 Tobacco/Smoking Status: Tobacco use Status Tobacco use date assessed 10/27/24 10/27/24 10:49 Patient Tobacco Use Status Former Tobacco user 10/27/24 10:49 e-Cigarette/Vaping Use Never Used 10/27/24 10:49 PHQ-9: PHQ-9 Score PHQ-9: Total score 2 10/27/24 10:49 Depression Screening Interpretation: Negative Thrive Assessment: Date of Thrive Assessment Date Thrive assessed 10/27/24 10/27/24 10:49 Currently or been in a relationship where the following occur: No concerns reported Const General: no acute distress and alert HENMT Throat: Yes posterior oropharynx normal and Yes tonsils normal (no TP congestion) Neck Neck: Yes supple and No lymphadenopathy Thyroid: Thyroid normal Resp Auscultation: clear to auscultation bilaterally, no rales and no wheezes Cardio Rate: regular rate Rhythm: regular rhythm Heart sounds: no murmurs GI Palpation (GI): Soft to palpation and nontender Auscultation: normal bowel sounds General: Yes no CVA tenderness Back/Spine/Pelvis Back: no CVA tenderness Thoracic/Lumbar Spine: lumbar spinal tenderness (mild) Skin Rashes: no rashes Extrem General: Yes no clubbing, cyanosis or edema Results Reviewed Results Reviewed: Laboratory Tests 10/20/24 10/20/24 10:20 10:21 WBC 6.9 Hgb 14.4 Hct 43.8 Plt Count 238 Sodium 141 Potassium 4.2 Creatinine 0.80 Estimated GFR > 60 Fasting Glucose 86 Calcium 9.9 AST 23 ALT 25 Triglycerides 82 Cholesterol 211 H LDL Cholesterol, Calc 148 H HDL Cholesterol 47 PSA Screen 1.76 25-OH Vitamin D Total 19.1 L TSH 0.55 Ur Specific [place] 1.020 Urine Protein Negative Urine Glucose (UA) Negative Urine Blood Moderate (2+) H Urine Nitrite Negative Ur Leukocyte Esterase Negative Coding Level of Care Code Est Pt Level 4 (47230) Diagnoses Pure hypercholesterolemia E78.00 Vitamin D deficiency E55.9 Gastritis without bleeding, unspecified chronicity, unspecified gastritis type K29.70 Gastritis type: unspecified gastritis Chronicity: unspecified Gastritis bleeding: without bleeding Degeneration of intervertebral disc of lumbar region with discogenic back pain M51.360 Disc-related pain type: discogenic back pain only Benign microscopic hematuria R31.1 Overweight (BMI 25.0-29.9) E66.3 Additional Codes PHQ-9 - 37284 - PHQ-9 Billing: Yes ([id number]) Assessment & Plan Assessment & Plan (1) Pure hypercholesterolemia: Code(s): E78.00 - Pure hypercholesterolemia, unspecified Category: Medical Plan: Results of his labs done last week reviewed and discussed with patient He is advised that his cholesterol levels have increased from previous, with his total cholesterol now 211 mg/dl (was at 190 mg/dl back in 2021) at and LDL cholesterol at 148 mg/dl (was at 132 mg/dl in 2021) Reinforced low cholesterol diet - low cholesterol diet information provided to patient today Will recheck his labs and fasting lipids in 4 months for follow up - have advised him that if he can get his cholesterol levels improved with diet modification alone, then he does not really need to start taking cholesterol-lowering medications at this time (2) Vitamin D deficiency: Code(s): E55.9 - Vitamin D deficiency, unspecified Category: Medical Plan: Patient's Vitamin D level was still low on his recent labs Will start him again on Vitamin D3 2000 units QD (3) Gastritis: Code(s): K29.70 - Gastritis, unspecified, without bleeding Category: Medical Qualifiers: Gastritis type: unspecified gastritis Chronicity: unspecified Gastritis bleeding: without bleeding Qualified Code(s): K29.70 - Gastritis, unspecified, without bleeding Plan: Upper GI series done last week revealed (+) gastritis changes in the area gastricae. There is also mild episodic reflux and mildly disordered esophageal motility noted but no hiatal hernia Dietary restrictions discussed Patient is also advised to avoid taking Ibuprofen and take OTC Tylenol PRN for pain instead He is advised that if taking Ibuprofen is unavoidable, then he should take it with food and never on an empty stomach Will start him for now on Omeprazole 20 mg QD (4) Lumbar degenerative disc disease: Code(s): M51.36 - Other intervertebral disc degeneration, lumbar region Category: Medical Qualifiers: Disc-related pain type: discogenic back pain only Qualified Code(s): M51.360 - Other intervertebral disc degeneration, lumbar region with discogenic back pain only Plan: Reinforced activity and weight-lifting restrictions to avoid aggravating his low back pain Lumbar spine MRI done back in 2020 revealed (+) central and right-sided disc protrusion which narrows the right subarticular recess, with mass effect on the traversing right L5 nerve root. There is no central stenosis. There is also (+) mild facet arthropathic changes and spondylosis at L3-L4, L4-L5 and L5-S1 Patient states that his low back pain has improved with regular back exercises and has been mostly tolerable lately (5) Benign microscopic hematuria: Code(s): R31.1 - Benign essential microscopic hematuria Category: Medical Plan: He continues to present with (+) microscopic RBCs in the urine Patient denies any acute urinary symptoms and work ups done regarding this in the past have all been negative Renal US done in 2019 came out normal except for possible left renal stones (6) Overweight (BMI 25.0-29.9): Code(s): E66.3 - Overweight Category: Medical Plan: Reinforced diet/exercise as tolerated/lose weight Plan Follow up in 4 months Orders: Orders Comprehensive [place]. Panel Fast 4 Months E78.00 - Pure hypercholesterolemia, unspecified Lipid Panel 4 Months E78.00 - Pure hypercholesterolemia, unspecified Medications: New cholecalciferol (vitamin D3) 50 mcg PO DAILY 90 days 90 caps 3RF E55.9 - Vitamin D deficiency, unspecified omeprazole 20 mg PO DAILY 90 days 90 caps 1RF
[2024-10-27 10:47] VITALS: BP 110/80; PULSE 68; O2SAT 99; BMI 29.9
--- OUTSIDE RECORDS SUMMARY | 2024-10-27 12:25 | XMS_ITS | Clinical Summary ---
Author Organization [facility] Address [address] [place] [address] Phone Care Team Providers Care Travel Writer Name Role Phone Physician, No Pcp Primary [...] 10:40 AM EST Office Visit Gastroenterology - [place] [address] [facility] [address] [facility] [address] [place] [address] Shelton Osullivan PA Bloating (Primary [...] OF EXTERNAL HEMORRHOIDS; COMMENT: -1999 done in [facility] Medical History Medical History Date Comments [...] age to complete this topic Meningococcal B Vaccine Aged Out No l onger eligible based on patient's age to complete [...] Most Recently Relevant to Health Maintenance Insurance [facility] [place] [address] Care Teams Travel Writer Relationship Specialty Start Date End Date Physician, No Pcp PCP - General 08/05/24
== END 2024-10-27 11:36 | disposition home or self-care (01) ==
LOC: HO.HMCH 10:44
PROVIDERS: PCP Internal Medicine; Visit Provider Internal Medicine
DX: E78.00 Pure hypercholesterolemia, unspecified (principal); E55.9 Vitamin D deficiency, unspecified; K29.70 Gastritis, unspecified, without bleeding; M51.360 Other intervertebral disc degeneration, lumbar region with discogenic back pain only; R31.1 Benign essential microscopic hematuria; E66.3 Overweight

== ENCOUNTER → 2024-10-27 10:43 | Outpatient (BNVA) | payer OTHER, SELFPAY | PROVIDERS: PCP Internal Medicine; Visit Provider Internal Medicine | DX: E78.00 Pure hypercholesterolemia, unspecified (principal); E55.9 Vitamin D deficiency, unspecified; K29.70 Gastritis, unspecified, without bleeding; M51.360 Other intervertebral disc degeneration, lumbar region with discogenic back pain only; R31.1 Benign essential microscopic hematuria; E66.3 Overweight; Z68.29 Body mass index [BMI] 29.0-29.9, adult | CPT/HCPCS: 96127; 99212 ==

== ENCOUNTER 2025-01-18 08:28 | Outpatient (REF) | payer OTHER, SELFPAY ==
--- OUTSIDE RECORDS SUMMARY | 2025-01-18 08:33 | XMS_ITS | Clinical Summary ---
Author Organization [facility] Address [address] [place] [address] Phone Care Team Providers Care Jar Filler Name Role Phone Physician, No Pcp Primary [...] the therapy if things or not improving. Immunizations Name Administration Dates Next Due Influenza [...] EXTERNAL HEMORRHOIDS; COMMENT: -1999 done in [facility] Medical History Medical History Date Comments Low [...] 82 08/05/2024 11:19 AM EST Temperature 36.6 C (97.8 F) 06/18/2024 2:07 PM EST Respiratory Rate 18 06/18/2024 2:07 PM EST [...] Results * Annual BMP Blood Test (04/22/2023) Pathologist [facility] Annual BMP Blood Test abstracted Historical Provider HEALTH MAINTENANCE Final Result * (ABNORMAL) Lipid panel (04/22/2023) Pathologist [facility] LDL/HDL Ratio 4 0 - 4 Triglycerides 138 0 - 150 mg/dL Cholesterol 186 0 - 200 mg/dL HDL 46 >=40 mg/dL LDL Cholesterol 113(A) 0 - 100 mg/dL Blood Venous blood specimen / Unknown Historical Provider LAB BLOOD ORDERABLES Dede l Result from Last 3 Months or Most Recently Relevant to Health Maintenance Insurance [facility] [facility] Care Teams Jar Filler Relationship Specialty Start Date End Date Physician, No Pcp PCP - General 08/05/24
== END 2025-01-18 08:29 | disposition home or self-care (01) ==
LOC: HO.XRAY 08:28
PROVIDERS: PCP Internal Medicine; Visit Provider Internal Medicine
DX: Z13.89 Encounter for screening for other disorder (principal)

== ENCOUNTER 2025-03-07 09:49 | Outpatient (REF) | payer OTHER, SELFPAY ==
--- OUTSIDE RECORDS SUMMARY | 2025-03-07 10:32 | XMS_ITS | Clinical Summary ---
Author Organization [facility] Address [address] [place] [address] Phone Care Team Providers Care Respiratory Therapy Instructor Name Role Phone Physician, No Pcp Primary [...] OF EXTERNAL HEMORRHOIDS; COMMENT: -1999 done in [facility] Medical History Medical History Date [...] 5 Years) and At-Risk Patients (6 to 49 Years) (1 of 2 - PCV) 1999 HIV Screening 06/22/2022 Hepatitis C Screening 06/22/2022 Social Influencers of Health Screening 06/22/2022 Hypertension/CHF/CAD Annual BMP Blood Test 04/22/2024 04/22/2023 Depression Screening 07/21/2024 Influenza Vaccine (#1) 2025 , 05/29/2021, 06/11/2019 Cholesterol Screening (Lipid Panel) 04/22/2028 04/22/2023 COVID-19 Vaccine Completed 05/21/2024, 06/05/2021 HIB Vaccines Aged Out No longer eligi [...] * Annual BMP Blood Test (04/22/2023) Pathologist [facility] Annual BMP Blood Test abstracted Historical Provider MD HEALTH MAINTENANCE Final Result * (ABNORMAL) Lipid panel (04/22/2023) [facility] LDL/HDL Ratio 4 0 - 4 Triglycerides 138 0 - 150 mg/dL Cholesterol 186 0 - 200 mg/dL HDL 46 >=40 mg/dL LDL Cholesterol 113(A) 0 - 100 mg/dL Blood Venous blood specimen / Unknown Historical Provider LAB BLOOD ORDERABLES Dede l Result from Last 3 Months or Most Recently Relevant to Health Maintenance Insurance [facility] [place] [address] Care Teams Respiratory Therapy Instructor Relationship Specialty Start Date End Date Physician, No Pcp PCP - General 08/05/24
[2025-03-07 11:09] LABS: Alanine Aminotransferase 43 U/L (0-40); Albumin Level 4.5 g/dL (3.5-5.0); Alkaline Phosphatase 87 U/L (39-117); Anion Gap 11 (12-20); Aspartate Amino Transferase 29 U/L (5-37); Blood Urea Nitrogen 21 mg/dL (9-16); Calcium 9.5 mg/dL (8.4-10.2); Carbon Dioxide 28 mmol/L (22-29); Chloride 106 mmol/L (96-108); Cholesterol 215 mg/dL (<200); Estimated Glomerular Filt Rate > 60; HDL Cholesterol 48 mg/dL (>40); Potassium 3.8 mmol/L (3.3-5.1); Sodium 141 mmol/L (135-145); Total Protein 7.6 g/dL (6.5-8.0); Triglycerides 65 mg/dL (<150)
== END 2025-03-07 09:50 | disposition home or self-care (01) ==
LOC: HO.LAB 09:49
PROVIDERS: PCP Internal Medicine; Visit Provider Internal Medicine
DX: E78.00 Pure hypercholesterolemia, unspecified (principal)
CPT/HCPCS: 36415; 80053; 80061

== ENCOUNTER 2025-03-14 10:50 | Outpatient (AMB) | payer OTHER, SELFPAY ==
--- NOTE | 2025-03-14 10:51 | A.OFFPC_ITS ---
Intake Visit Reasons: 4 month f/u Salicylic Acid Blender Required: No Accompanied by: Self / Same As Patient Allergies buprenorphine Adverse Reaction (Intermediate, Verified 03/14/25 11:55) Dizziness naloxone Adverse Reaction (Intermediate, Verified 03/14/25 11:55) Dizziness Medication List - Last Reconciled 03/14/25 by Estevan Padilla MD cholecalciferol (vitamin D3) 50 mcg PO DAILY 90 days ibuprofen 800 mg PO TID PRN omeprazole 20 mg PO DAILY 90 days Tobacco use date assessed: 03/14/25 Dental Screening Dental Screen Date: 03/14/25 HPI 4 month f/u HPI Details Due to the COVID-19 pandemic, we are limiting ahcp-fx-wzat visits to patient's or have an absolute need for such visits Patient's follow-up visit / consultation today is done over the phone - this is a Telehealth visit Patient's current medications have been reviewed and verified with patient and / or caregiver / proxy and have been updated accordingly in the medication list Patient states that he feels okay and that the reason he could not come into the office in-person today is because he has to watch his son and they could not find a sitter in time He denies any headaches or dizziness Denies any chest pains, no SOB No nausea/vomiting, no abdominal pain No change in bowel habits noted He had his follow up labs done last week - to discuss his results [facility] Medical History Gastritis Benign microscopic hematuria Pure hypercholesterolemia Spondylosis of lumbar spine Disc degeneration, lumbar Vitamin D deficiency Overweight (BMI 25.0-29.9) Tinea pedis Surgical History Myringotomy tube(s) status Family History Father No problems noted. 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 1. Little interest or pleasure in doing things: not at all 2. Feeling down, depressed, or hopeless: not at all 3. Trouble falling or staying asleep, or sleeping too much: several days 4. Feeling tired or having little energy: several days 5. Poor appetite or overeating: not at all 6. Feeling bad about yourself - or that you are a failure or have let yourself or your family down: not at all 7. Trouble concentrating on things, such as reading the newspaper or watching television: not at all 8. Moving or speaking so slowly that other people could have noticed. Or the opposite - being so fidgety or restless that you have been moving around a lot more than usual: not at all 9. Thoughts that you would be better off or of hurting yourself in some way: not at all Total score: 2 Depression Screening Interpretation: Negative Depression Screening Done: Yes 65797 - PHQ-9 Billing: Yes Source: Developed by Drs. Naman Beckett, Yadira Thomas, Nima Alcaraz and colleagues, with an educational mecca from [employer]. Thrive Questionnaire Date Thrive assessed: 03/14/25 I am a: Patient What is your living situation today?: I have a steady place to live Within the past 12 months, did the food you bought not last and you didn't have the money to get more?: Never true Within the past 12 months, did you worry whether your food would run out before you got money to buy more?: Never true Do you have trouble paying for medicines?: No Do you have trouble getting transportation to medical appointments?: No Do you have trouble paying your heating and electricity bill?: No Do you have trouble taking care of your child, family member or friend?: No Do you have trouble with day-to-day activities such as bathing, preparing meals, shopping, managing finances, etc.?: No Are you currently unemployed and looking for a job?: No Are you interested in more education?: No Please select the resources that you would like help with: None Currently or been in a relationship where the following occur: No concerns reported THRIVE Score: 0 AUDIT C Alcohol Use Questionnaire (AUDIT-C) 1. How often do you have a drink containing alcohol?: Monthly or less 2. How many drinks containing alcohol do you have on a typical day when you are drinking?: 1 or 2 3. How often do you have six or more drinks on one occasion?: Never Total Score: 1 Score Reviewed/Action Taken: Yes SHANIQUE-7 AMB Questionnaire SHANIQUE-7 Date SHANIQUE - 7 assessed: 03/14/25 Feeling nervous, anxious, or on edge: 0 = Not at all Not being able to stop or control worryin = Not at all Worrying too much about different things: 0 = Not at all Trouble relaxin = Not at all Being so restless that it is hard to sit still: 0 = Not at all Becoming easily annoyed or irritable: 0 = Not at all Feeling afraid as if something awful might happen: 0 = Not at all Total SHANIQUE-7 score (0-4 normal; 5-9 mild; 10-14 moderate; 15-21 severe): 0 Source: Developed by Drs. Naman Beckett, Yadira Thomas, Nima Alcaraz and colleagues, with an educational mecca from [employer]. Review of Systems Const Denies chills, Denies fatigue, Denies fever(s) and Denies headache(s) ENT Denies dysphagia, Denies dizziness, Denies otalgia, Denies headache(s), Denies neck pain, Denies odynophagia and Denies sore throat Card Denies chest pain, Denies irregular heart rhythm, Denies palpitations and Denies dyspnea Resp Denies chest congestion, Denies cough and Denies dyspnea GI Denies abdominal pain, Reports bloating (at times but stomach feels better than previous), Denies constipation, Denies dysphagia, Denies heartburn, Denies diarrhea, Denies nausea, Denies odynophagia and Denies vomiting Denies difficulty urinating, Denies dysuria and Denies urinary frequency Musc Reports back pain (on and off, over the lower back), Denies arthralgias and Denies neck pain Skin/Breast Denies rash Neuro Denies dizziness, Denies headache(s) and Denies paresthesias Endo Denies fatigue and Denies palpitations Physical exam (Primary Care) Vital Signs: Physical examination is not performed as visit / consultation today is done over the phone - Telehealth visit All physical findings indicated here, if present, are as per patient's and / or caregivers / proxy's report Tobacco/Smoking Status: Tobacco use Status Tobacco use date assessed 03/14/25 03/14/25 10:54 Patient Tobacco Use Status Former Tobacco user 03/14/25 10:54 e-Cigarette/Vaping Use Never Used 03/14/25 10:54 PHQ-9: PHQ-9 Score PHQ-9: Total score 2 03/14/25 11:57 Depression Screening Interpretation: Negative Thrive Assessment: Date of Thrive Assessment Date Thrive assessed 03/14/25 03/14/25 10:54 Currently or been in a relationship where the following occur: No concerns reported Telehealth Telehealth Telehealth Platform: Telephone Location of provider rendering services: practice address Location of patient: address on file Patient Identification confirmed using: Name, : Yes Telehealth method: voice only Patient verbally consented to treatment: Yes Patient verbally consented to billing insurance company: Yes Patient informed of any privacy concerns related to visit: Yes Minutes spent on Phone/Video with Pt.: 22 Results Reviewed Results Reviewed: Laboratory Tests 03/07/25 09:57 Sodium 141 Potassium 3.8 Creatinine 0.91 Estimated GFR > 60 Fasting Glucose 87 Calcium 9.5 AST 29 ALT 43 H Triglycerides 65 Cholesterol 215 H LDL Cholesterol, Calc 154 H HDL Cholesterol 48 Coding Level of Care Code Tele Est Pt Level 4 (64108) Diagnoses Pure hypercholesterolemia E78.00 Vitamin D deficiency E55.9 Gastritis without bleeding, unspecified chronicity, unspecified gastritis type K29.70 Gastritis type: unspecified gastritis Chronicity: unspecified Gastritis bleeding: without bleeding Degeneration of intervertebral disc of lumbar region with discogenic back pain M51.360 Disc-related pain type: discogenic back pain only Benign microscopic hematuria R31.1 Overweight (BMI 25.0-29.9) E66.3 Additional Codes PHQ-9 - 97121 - PHQ-9 Billing: Yes ([id number]) Assessment & Plan Assessment & Plan (1) Pure hypercholesterolemia: Code(s): E78.00 - Pure hypercholesterolemia, unspecified Category: Medical Plan: Results of his labs done last week reviewed and discussed with patient Have advised patient that his cholesterol levels have not really improved or changed much from his previous numbers, and his total cholesterol is still at 215 mg/dl (was at 211 mg/dl a few months ago) and his LDL cholesterol is at 154 mg/dl (was at 148 mg/dl a few months ago) Reinforced low cholesterol diet Will recheck his labs and fasting lipids in 4 months for follow up - have advised patient again that if he cannot get his cholesterol levels improved with diet modification alone, then we will have to consider starting him on some cholesterol-lowering medications at some point (2) Vitamin D deficiency: Code(s): E55.9 - Vitamin D deficiency, unspecified Category: Medical Plan: Continue Vitamin D3 2000 units QD (3) Gastritis: Code(s): K29.70 - Gastritis, unspecified, without bleeding Category: Medical Qualifiers: Gastritis type: unspecified gastritis Chronicity: unspecified Gastritis bleeding: without bleeding Qualified Code(s): K29.70 - Gastritis, unspecified, without bleeding Plan: Upper GI series done a few months ago revealed (+) gastritis changes in the area gastricae. There is also mild episodic reflux and mildly disordered esophageal motility noted but no hiatal hernia Dietary restrictions reinforced Continue Omeprazole 20 mg QD Patient is again reminded to avoid taking Ibuprofen and all other NSAIDs as much as possible (4) Lumbar degenerative disc disease: Code(s): M51.36 - Other intervertebral disc degeneration, lumbar region Category: Medical Qualifiers: Disc-related pain type: discogenic back pain only Qualified Code(s): M51.360 - Other intervertebral disc degeneration, lumbar region with discogenic back pain only Plan: Reinforced activity and weight-lifting restrictions to avoid aggravating his low back pain Lumbar spine MRI done back in 2020 revealed (+) central and right-sided disc protrusion which narrows the right subarticular recess, with mass effect on the traversing right L5 nerve root. There is no central stenosis. There is also (+) mild facet arthropathic changes and spondylosis at L3-L4, L4-L5 and L5-S1 Patient states that his low back pain has improved with regular back exercises and has been mostly tolerable lately (5) Benign microscopic hematuria: Code(s): R31.1 - Benign essential microscopic hematuria Category: Medical Plan: He continues to present with (+) microscopic RBCs in the urine Patient denies any acute urinary symptoms and work ups done regarding this in the past have all been negative Renal US done in 2019 came out normal except for possible left renal stones (6) Overweight (BMI 25.0-29.9): Code(s): E66.3 - Overweight Category: Medical Plan: Reinforced diet/exercise as tolerated/lose weight Plan Follow up in 4 months Orders: Orders Lipid Panel 4 Months E78.00 - Pure hypercholesterolemia, unspecified TSH reflex Free T4 4 Months E78.00 - Pure hypercholesterolemia, unspecified UA CC w/rflx Micro + Cult 4 Months R30.0 - Dysuria Vitamin D 25-OH Total 4 Months E55.9 - Vitamin D deficiency, unspecified Complete Blood Count Auto Diff 4 Months D64.9 - Anemia, unspecified Comprehensive Biddle. Panel Fast 4 Months E78.00 - Pure hypercholesterolemia, unspecified
--- OUTSIDE RECORDS SUMMARY | 2025-03-14 12:03 | XMS_ITS | Clinical Summary ---
Author Organization [facility] Address [address] [place] [address] Phone Care Team Providers Care Rn Geriatric Name Role Phone Physician, No Pcp Primary [...] OF EXTERNAL HEMORRHOIDS; COMMENT: -1999 done in [facility] Medical History Medical History Date Comments Low [...] * Annual BMP Blood Test (04/22/2023) Pathologist [facility] Annual BMP Blood Test abstracted Historical Provider MD HEALTH MAINTENANCE Final Result * (ABNORMAL) Lipid panel (04/22/2023) [facility] LDL/HDL Ratio 4 0 - 4 Triglycerides 138 0 - 150 mg/dL Cholesterol 186 0 - 200 mg/dL HDL 46 >=40 mg/dL LDL Cholesterol 113(A) 0 - 100 mg/dL Blood Venous blood specimen / Unknown Historical Provider LAB BLOOD ORDERABLES Dede l Result from Last 3 Months or Most Recently Relevant to Health Maintenance Insurance [facility] Care Teams Rn Geriatric Relationship Specialty Start Date End Date Physician, No Pcp PCP - General 08/05/24
== END 2025-03-14 12:24 | disposition home or self-care (01) ==
LOC: HO.HMCH 10:50
PROVIDERS: PCP Internal Medicine; Visit Provider Internal Medicine
DX: E78.00 Pure hypercholesterolemia, unspecified (principal); E55.9 Vitamin D deficiency, unspecified; K29.70 Gastritis, unspecified, without bleeding; M51.360 Other intervertebral disc degeneration, lumbar region with discogenic back pain only; R31.1 Benign essential microscopic hematuria; E66.3 Overweight

== ENCOUNTER → 2025-03-14 10:50 | Outpatient (BNVA) | payer OTHER, SELFPAY | PROVIDERS: PCP Internal Medicine; Visit Provider Internal Medicine | DX: R31.1 Benign essential microscopic hematuria (principal); M51.360 Other intervertebral disc degeneration, lumbar region with discogenic back pain only; E78.00 Pure hypercholesterolemia, unspecified; E55.9 Vitamin D deficiency, unspecified; K29.70 Gastritis, unspecified, without bleeding; E66.3 Overweight | CPT/HCPCS: 96127 ==

== ENCOUNTER → 2025-06-24 09:26 | Outpatient (BNVA) | payer OTHER, SELFPAY | PROVIDERS: PCP Internal Medicine | DX: R03.0 Elevated blood-pressure reading, without diagnosis of hypertension (principal); Z87.891 Personal history of nicotine dependence | CPT/HCPCS: 99211 ==